=== PATIENT | female | born 1995 | race African-American/Black ===

== ENCOUNTER 2016-11-20 02:10 | Emergency (ER) | payer MEDICAID ==
[~2016-11-20] VITALS: Ht 170.2 cm; Wt 59.5 kg
[2016-11-20 03:10] LABS: CLARITY URINE CLOUDY (CLEAR); COLOR URINE YELLOW (YELLOW); GLUCOSE URINE NEGATIVE (NEGATIVE); KETONES URINE TRACE (NEGATIVE); LEUKOCYTE ESTERASE URINE 3+ (NEGATIVE); NITRITE URINE NEGATIVE (NEGATIVE); OCCULT BLOOD URINE NEGATIVE (NEGATIVE); PROTEIN URINE NEGATIVE (NEGATIVE); SPECIFIC GRAVITY URINE 1.028 (1.005-1.030)
[2016-11-20] MEDS ORDERED: ACETAMINOPHEN 500MG TABLET PO ONE (03:15)
[2016-11-20 03:57] LABS: SQUAMOUS EPITHELIAL CELL URINE 3+ /lpf (RARE/1+)
[2016-11-20 03:58] LABS: BACTERIA URINE 3+; RBC URINE 0-2 /hpf (0-2)
[2016-11-20 04:20] VITALS: BP 110/65
== END 2016-11-20 04:21 | disposition home or self-care (01) ==
LOC: ER 02:10
DX: O23.41 Unspecified infection of urinary tract in pregnancy, first trimester (principal); N39.0 Urinary tract infection, site not specified; O99.331 Smoking (tobacco) complicating pregnancy, first trimester; F17.200 Nicotine dependence, unspecified, uncomplicated; F12.10 Cannabis abuse, uncomplicated; F15.10 Other stimulant abuse, uncomplicated; Z3A.00 Weeks of gestation of pregnancy not specified
CPT/HCPCS: 81001; 81025; 99283

== ENCOUNTER 2017-05-19 10:56 | Emergency (ER) | payer SELFPAY ==
[~2017-05-19] VITALS: Ht 170.2 cm; Wt 79.0 kg
[2017-05-19 12:00] VITALS: BP 107/71
[2017-05-19] MEDS ORDERED: PNV1TABL76 MT (21:09)
== END 2017-05-19 15:00 | disposition home or self-care (01) ==
LOC: ER 10:56 → L&D 13:38
PROVIDERS: ADMIT Obstetrics & Gynecology; ATTEND Obstetrics & Gynecology
DX: O26.893 Other specified pregnancy related conditions, third trimester (principal); R52 Pain, unspecified; Z3A.31 31 weeks gestation of pregnancy
CPT/HCPCS: 99281; G0378; Z7610

== ENCOUNTER 2017-05-19 15:24 | Observation (INO) | payer SELFPAY ==
[~2017-05-19] VITALS: Ht 170.2 cm; Wt 80.0 kg
[2017-05-19] MEDS ORDERED: ONDANSETRON 4MG ODT PO ONE (18:45)
[2017-05-19 18:46] LABS: CLARITY URINE CLEAR (CLEAR); COLOR URINE DARK YELLOW (YELLOW); GLUCOSE URINE NEGATIVE (NEGATIVE); KETONES URINE 4+ (NEGATIVE); LEUKOCYTE ESTERASE URINE 3+ (NEGATIVE); NITRITE URINE NEGATIVE (NEGATIVE); OCCULT BLOOD URINE NEGATIVE (NEGATIVE); PROTEIN URINE 1+ (NEGATIVE); SPECIFIC GRAVITY URINE 1.029 (1.005-1.030)
[2017-05-19 19:11] LABS: BASOPHILS % 0.7 % (0.0-2.0); EOSINOPHILS % 0.8 % (0.0-5.0); HEMATOCRIT. 30.1 % (36.0-48.0); HEMOGLOBIN. 9.1 g/dL (12.0-16.0); LYMPHOCYTES % 22.1 % (20.0-50.0); MEAN CORPUSCULAR HEMOGLOBIN 20.5 pg (28.0-32.0); MEAN CORPUSCULAR VOLUME 67.8 fL (81.0-99.0); MONOCYTES % 13.9 % (2.0-8.0); NEUTROPHILS % 62.5 % (40.0-76.0); PLATELET 337 x1000/uL (130-400); RED BLOOD CELL COUNT 4.44 mill/uL (4.2-5.4); RED CELL DISTRIBUTION WIDTH 23.3 % (11.6-14.6)
[2017-05-19 19:17] LABS: CHLORIDE 104 mEq/L (98-107)
[2017-05-19 19:25] LABS: CARBON DIOXIDE 24 mEq/L (21-32)
[2017-05-19 19:40] LABS: B-HCG QUANTITATIVE 16138 mIU/mL (<3)
[2017-05-19] MEDS ORDERED: NITROFURANTOIN 100MG M/M CAPSULE PO ONE (20:30)
[2017-05-19 20:45] VITALS: BP 100/58
[2017-05-19] MEDS ORDERED: PNV1TABL76 MT (21:09)
[2017-05-19] MEDS ORDERED: CITRIC ACID/SODIUM CITRATE SOLN 30ML UDC PO NR (21:45)
[2017-05-19] MEDS: DEXT 5%/0.45% NACL KCL 20MEQ/L 1,000 ML IV SCH (22:08)
[2017-05-20] MEDS: DEXT 5%/0.45% NACL KCL 20MEQ/L 1,000 ML IV SCH ×2 (05:49→09:33)
[2017-05-20 10:16] LABS: *BARBITURATES SCREEN URINE NEGATIVE (NEGATIVE); *BENZODIAZEPINES SCREEN URINE NEGATIVE (NEGATIVE); *COCAINE SCREEN URINE NEGATIVE (NEGATIVE); METHADONE URINE SCREEN NEGATIVE (NEGATIVE); OPIATES URINE SCREEN NEGATIVE (NEGATIVE); PHENCYCLIDINE URINE SCREEN NEGATIVE (NEGATIVE)
[2017-05-20 10:21] LABS: *AMPHETAMINES SCREEN URINE PRESUMTIVE POSITIVE (NEGATIVE); CANNABINOID URINE SCREEN PRESUMTIVE POSITIVE (NEGATIVE)
[2017-05-20 14:09] LABS: CARBON DIOXIDE 26 mEq/L (21-32); CHLORIDE 107 mEq/L (98-107)
[2017-05-27 04:17] LABS: AMPHETAMINE CONF URINE Positive (.); CANNABINOID CONFIRMATION URINE Positive (.)
== END 2017-05-20 11:55 | disposition home or self-care (01) ==
LOC: ER 15:55 → L&D 20:57
PROVIDERS: ADMIT Obstetrics & Gynecology; ATTEND Obstetrics & Gynecology
DX: O23.43 Unspecified infection of urinary tract in pregnancy, third trimester (principal); O99.283 Endocrine, nutritional and metabolic diseases complicating pregnancy, third trimester; E87.6 Hypokalemia; O26.613 Liver and biliary tract disorders in pregnancy, third trimester; K80.20 Calculus of gallbladder without cholecystitis without obstruction; Z82.49 Family history of ischemic heart disease and other diseases of the circulatory system; Z3A.31 31 weeks gestation of pregnancy
CPT/HCPCS: 36415; 76705; 76805; 80053; 80305; 80307; 80349; 81001; 84702; 85025; 86886; 86901; 96365; 96366; 99285; G0378; Q0162; 96360; 96361